=== PATIENT | female | born 1995 | race Caucasian/White ===

== ENCOUNTER 2020-07-07 11:25 | Emergency (ER) | payer BC ==
[2020-07-07 11:35] VITALS: BP 117/87; PULSE 89; RESP 18; TEMP 97.9
--- NOTE | 2020-07-07 12:06 | XR ---
EXAMINATION TYPE: XR ankle complete RT DATE OF EXAM: 07/07/2020 CLINICAL HISTORY: Fall injury with pain TECHNIQUE: Frontal, lateral and oblique images of the right ankle are obtained. COMPARISON: None. FINDINGS: There is no acute fracture/dislocation evident in the right ankle. The ankle mortise appe ars within normal limits. The overlying soft tissue appears unremarkable. IMPRESSION: There is no acute fracture or dislocation in the right ankle.
--- NOTE | 2020-07-07 12:11 | ED ---
Lower Extremity Injury HPI - General Chief Complaint: Extremity Injury, Lower Stated Complaint: Right ankle/Fall 5 steps Time Seen by Provider: 07/07/20 11:36 Source: patient Mode of arrival: ambulatory Limitations: no limitations - History of Present Illness Initial Comments: Patient is a 25-year-old female presenting to the emergency Department with c omplaints of right ankle pain after falling today. Patient states her socks slipped on her carpeted stairs and she fell down about 4-5 of them. Patient denies hitting her head, she has no other injuries from this fall other than her right ankle. Patient denies any previous injuries or surgeries of her right ankle. She states she is able to bear some weight on the ankle but is having a lot of pain. She has no further complaints at this time. - Related Data Allergies Allergy/AdvReac Type Severity Reaction Status Date / Time No Known Allergies Allergy Verified 07/07/20 11:35 Review of Systems ROS Statement: Those systems with pertinent positive or pertinent negative responses have been documented in the HPI. ROS Other: All systems not noted in ROS Statement are negative. Past Medical History Past Medical History: No Reported History History of Any Multi-Drug Resistant Organisms: None Reported Past Surgical History: No Surgical Hx Reported Additional Past Surgical History / Comment(s): reconstructive jaw at 16 due to underbite. Past Psychological History: No Psychological Hx Reported Smoking Status: Never smoker Past Alcohol Use History: Occasional Past Drug Use History: None Reported General Exam - General Exam Comments Initial Comments: GENERAL: Patient is well-developed and well-nourished. Patient is nontoxic and in no acute distress. HEAD: Atraumatic, normocephalic. EYES: Pupils equal round and reactive to light, extraocular movements intact, sclera anicteric, conjunctiva are normal. Eyelids were unremarkable. ENT: TMs normal, nares patent, oropharynx clear without exudates. Moist mucous membranes. NECK: Normal range of motion, supple without lymphadenopathy or JVD. LUNGS: Unlabored respirations. Breath sounds clear to auscultation bilaterally and equal. No wheezes rales or rhonchi. HEART: Regular rate and rhythm without murmurs, rubs or gallops. ABDOMEN: Soft, nontender, normoactive bowel sounds. No guarding, no rebound. No masses appreciated. : Deferred MUSCULOSKELETAL: Patient has some mild tenderness with palpation of the lateral and medial malleolus of the right ankle, she does have some slightly decreased range of motion in all directions, neurovascular intact. She does have some very mild swelling over the lateral malleolus. Pain of the right foot or right lower leg. No clubbing or cyanosis. NEUROLOGICAL: Patient is alert and oriented x 3. Motor and sensory are also intact. Normal speech, normal gait. PSYCH: Normal mood, normal affect. SKIN: Warm, Dry, normal turgor, no rashes or lesions noted. Limitations: no limitations Course Vital Signs 07/07/20 11:31 Temperature 97.9 F Pulse Rate 89 Respiratory 18 Rate Blood Pressure 117/87 O2 Sat by Pulse 98 Oximetry Procedures - Orthopedic Splinting/Casting Injury #1 Side: right Lower Extremity Injury Location: ankle Lower Extremity Immobilizer: [employer] Medical Decision Making - Medical Decision Making Patient is a 25-year-old female here for right ankle pain after she slipped down 4-5 steps at her house today. No other injuries from this fall other than right ankle pain. X-rays today of the right ankle show no acute fracture dislocation. I discussed these findings with the patient, this is most likely a moderate ankle sprain. I did give patient an ankle stirrup brace. She is stable for discharge. She did follow-up orthopedics if symptoms persist after 1-2 weeks. She is in agreement with this plan of care. Disposition Clinical Impression: Right ankle sprain Disposition: HOME SELF-CARE Condition: Stable Instructions (If sedation given, give patient instructions): Ankle Sprain (ED) Additional Instructions: Please return to the Emergency Department if symptoms worsen or any other concerns. Recommend ice, ibuprofen, elevation and rest. Follow-up with orthopedics if symptoms persist after 1-2 weeks. Is patient prescribed a controlled substance at d/c from ED?: No Referrals: Jacquelin Conde DO [Primary Care Provider] - 1-2 days [place] MD [STAFF PHYSICIAN] - 1-2 days
== END 2020-07-07 12:23 | disposition home or self-care (01) ==
LOC: EC 11:25
DX: S93.401A Sprain of unspecified ligament of right ankle, initial encounter (principal); W10.8XXA Fall (on) (from) other stairs and steps, initial encounter
CPT/HCPCS: 73610; 99283; 29515; L4350

== ENCOUNTER 2020-10-29 08:55 | Emergency (ER) | payer BC ==
[2020-10-29] MEDS ORDERED: SODIUM CHLORIDE 0.9% 500 ML 500 ML IV STA (09:42)
[2020-10-29] MEDS ORDERED: ACETAMINOPHEN TAB 500 MG TAB PO STA (09:53)
[2020-10-29] MEDS ORDERED: IBUPROFEN 600 MG TAB PO STA (09:53)
--- NOTE | 2020-10-29 10:03 | ED ---
General Adult HPI - General Chief complaint: Fever Stated complaint: fever/SOB Time Seen by Provider: 10/29/20 09:22 Source: patient Mode of arrival: ambulatory Limitations: no limitations - History of Present Illness Initial comments: 25-year-old female presents to the emergency room for a chief complaint of fever. Patient states 2 days ago she started to develop a fever and a headache. States the headache went away and she developed a dry cough and some slight shortness of breath. Denies chest pain Patient states the fevers have been coming and going. She has been taking Motrin and Tylenol and states they help but then the fever comes back if she doesn't take it. She states she is having diarrhea and feels dehydrated. Patient is concerned she may have covid. Patient denies any chance of . Patient has no other complaints at this time including , chest pain, abdominal pain, nausea or vomiting, headache, or visual changes - Related Data Home Medications Medication Instructions Recorded Confirmed Dextromethorphan Polistirex 30 mg PO Q12H PRN 10/29/20 10/29/20 [Delsym] Ibuprofen [Motrin Ib] 400 mg PO Q8H PRN 10/29/20 10/29/20 Allergies Allergy/AdvReac Type Severity Reaction Status Date / Time No Known Allergies Allergy Verified 10/29/20 09:45 Review of Systems ROS Statement: Those systems with pertinent positive or pertinent negative responses have been documented in the HPI. ROS Other: All systems not noted in ROS Statement are negative. Past Medical History Past Medical History: No Reported History History of Any Multi-Drug Resistant Organisms: None Reported Past Surgical History: No Surgical Hx Reported Additional Past Surgical History / Comment(s): reconstructive jaw at 16 due to underbite. Past Psychological History: No Psychological Hx Reported Smoking Status: Never smoker Past Alcohol Use History: Occasional Past Drug Use History: None Reported General Exam Limitations: no limitations General appearance: alert, in no apparent distress Head exam: Present: atraumatic, normocephalic, normal inspection Eye exam: Present: normal appearance, PERRL, EOMI. Absent: scleral icterus, conjunctival injection, periorbital swelling ENT exam: Present: normal exam, mucous membranes moist Neck exam: Present: normal inspection, full ROM. Absent: tenderness, meningismus, lymphadenopathy Respiratory exam: Present: normal lung sounds bilaterally. Absent: respiratory distress, wheezes, rales, rhonchi, stridor Cardiovascular Exam: Present: regular rate, normal rhythm, normal heart sounds. Absent: systolic murmur, diastolic murmur, rubs, gallop, clicks GI/Abdominal exam: Present: soft, normal bowel sounds. Absent: distended, tenderness, guarding, rebound, rigid Course Vital Signs 10/29/20 10/29/20 10/29/20 08:56 10:00 10:56 Temperature 100.4 F H 100.9 F H Pulse Rate 108 H 90 Respiratory 16 16 18 Rate Blood Pressure 125/77 101/73 O2 Sat by Pulse 92 L 94 L Oximetry Medical Decision Making - Medical Decision Making Vitals are stable. Patient initially 92% on room air. Patient has consistently been between 92 and 94%. Tachycardia of 108 is likely reflective of fever which did improve after Motrin and Tylenol. No respiratory distress. Patient is well appearing. Patient found to be Covid positive. CBC does show leukocytopenia likely viral. CMP unremarkable. CRP is less than 5. Chest x-ray does show a new left perihilar acute infiltrate likely viral related to Covid at this time patient is stable for discharge home. I did recommend patient have BAM as she does qualify for this. I discussed that this could help prevent her get very sick from Covid. However despite this conversation patient does not want this treatment, feels uncomfortable with an emergency use authorized medication. Therefore patient will be discharged home with Alvaro Leal. I did recommend that if she gets increasingly short of breath she needs to return to the emergency room. She is agreeable to this. - Lab Data Result diagrams: 10/29/20 09:54 10/29/20 09:54 Lab Results 10/29/20 10/29/20 10/29/20 Range/Units 09:54 09:54 09:54 WBC 3.2 L (3.8-10.6) k/uL RBC 4.93 (3.80-5.40) m/uL Hgb 14.1 (11.4-16.0) gm/dL Hct 40.6 (34.0-46.0) % MCV 82.4 (80.0-100.0) fL MCH 28.5 (25.0-35.0) pg MCHC 34.6 (31.0-37.0) g/dL RDW 13.5 (11.5-15.5) % Plt Count 226 (150-450) k/uL MPV 7.7 Neutrophils % 63 % Lymphocytes % 29 % Monocytes % 5 % Eosinophils % 1 % Basophils % 1 % Neutrophils # 2.0 (1.3-7.7) k/uL Lymphocytes # 0.9 L (1.0-4.8) k/uL Monocytes # 0.2 (0-1.0) k/uL Eosinophils # 0.0 (0-0.7) k/uL Basophils # 0.0 (0-0.2) k/uL Sodium 137 (137-145) mmol/L Potassium 4.7 (3.5-5.1) mmol/L Chloride 102 (98-107) mmol/L Carbon Dioxide 27 (22-30) mmol/L Anion Gap 8 mmol/L BUN 10 (7-17) mg/dL Creatinine 0.83 (0.52-1.04) mg/dL Est GFR (CKD-EPI)AfAm >90 (>60 ml/min/1.73 sqM) Est GFR (CKD-EPI)NonAf >90 (>60 ml/min/1.73 sqM) Glucose 93 (74-99) mg/dL Calcium 8.8 (8.4-10.2) mg/dL Total Bilirubin 0.6 (0.2-1.3) mg/dL AST 78 H (14-36) U/L ALT 26 (4-34) U/L Alkaline Phosphatase 47 (38-126) U/L C-Reactive Protein <5.0 (<10.0) mg/L Total Protein 7.3 (6.3-8.2) g/dL Albumin 4.1 (3.5-5.0) g/dL Coronavirus (PCR) Detected A (Not Detectd) Disposition Clinical Impression: COVID-19, Viral pneumonia Disposition: HOME SELF-CARE Condition: Good Instructions (If sedation given, give patient instructions): Coronavirus Disease 2019 (COVID-19), Fever in Adults (ED) Additional Instructions: Please take Motrin and Tylenol for pain or fever. Drink plenty of fluids. Take [id number] vitamins. Take Tessalon Perles as needed for cough. If you become more short of breath return to the emergency room. Otherwise follow-up with primary care in 1-2 days. Make sure you quarantine for at least 10-14 days . Is patient prescribed a controlled substance at d/c from ED?: No Referrals: Jacquelin Conde DO [Primary Care Provider] - 1-2 days Time of Disposition: 11:00
[2020-10-29 10:06] LABS: Basophils % (A) 1 %; Eosinophils % (A) 1 %; HCT 40.6 % (34.0-46.0); HGB 14.1 gm/dL (11.4-16.0); Lymphocytes # (A) 0.9 k/uL (1.0-4.8); Lymphocytes % (A) 29 %; MCH 28.5 pg (25.0-35.0); MCHC 34.6 g/dL (31.0-37.0); MCV 82.4 fL (80.0-100.0); Mean Platelet Volume 7.7; Monocytes # (A) 0.2 k/uL (0-1.0); Monocytes % (A) 5 %; Neutrophils % (A) 63 %; Platelet Count 226 k/uL (150-450); RBC 4.93 m/uL (3.80-5.40); RDW 13.5 % (11.5-15.5); WBC 3.2 k/uL (3.8-10.6)
[2020-10-29 10:19] LABS: ALT 26 U/L (4-34); AST 78 U/L (14-36); African American GFR (CKD) >90 (>60 ml/min/1.73 sqM); Albumin 4.1 g/dL (3.5-5.0); Alkaline Phosphatase 47 U/L (38-126); Anion Gap 8 mmol/L; Blood Urea Nitrogen 10 mg/dL (7-17); C Reactive Protein <5.0 mg/L (<10.0); Calcium 8.8 mg/dL (8.4-10.2); Carbon Dioxide 27 mmol/L (22-30); Chloride 102 mmol/L (98-107); Glucose 93 mg/dL (74-99); Non-African American GFR(CKD) >90 (>60 ml/min/1.73 sqM); Sodium 137 mmol/L (137-145); Total Bilirubin 0.6 mg/dL (0.2-1.3); Total Protein 7.3 g/dL (6.3-8.2)
[2020-10-29 10:32] LABS: Potassium 4.7 mmol/L (3.5-5.1)
--- NOTE | 2020-10-29 10:37 | XR ---
EXAMINATION TYPE: XR chest 1V portable DATE OF EXAM: 10/29/2020 COMPARISON: Chest x-ray 2001 HISTORY: Recent covid exposure. Shortness of breath and cough. TECHNIQUE: Single frontal view of the chest is obtained. FINDINGS: There is new left perihilar opacity. Right lung clear. No pleural effusion or pneumothora x seen. The cardiac silhouette size is within normal limits. Slight underlying scoliotic curvature. IMPRESSION: New left perihilar acute infiltrate.
[2020-10-29 10:57] VITALS: BP 101/73; PULSE 90; RESP 18; TEMP 100.9
== END 2020-10-29 11:17 | disposition home or self-care (01) ==
LOC: EC 08:55
DX: U07.1 COVID-19 (principal); J12.82 Pneumonia due to coronavirus disease 2019
CPT/HCPCS: 36415; 71045; 80053; 85025; 86140; 87635; 99285

== ENCOUNTER 2020-10-30 19:51 | Emergency (ER) | payer BC ==
[2020-10-30] MEDS ORDERED: ALBUTEROL HFA INHALER INHALATION STA (21:04)
[2020-10-30] MEDS ORDERED: predniSONE 50 MG TAB PO STA (21:04)
[2020-10-30] MEDS ORDERED: guaiFENesin-DM 600/30MG 1 EACH TAB.ER.12H PO STA (21:04)
[2020-10-30] MEDS ORDERED: ACETAMINOPHEN TAB 500 MG TAB PO STA (21:04)
--- NOTE | 2020-10-30 21:47 | ED ---
General Adult HPI - General Chief complaint: Fever Stated complaint: COVID revisit Time Seen by Provider: 10/30/20 20:51 Source: patient Mode of arrival: ambulatory Limitations: no limitations - History of Present Illness Initial comments: 25-year-old female patient presents to the emergency department today for evaluation of increased shortness of breath and cough. Patient was diagnosed with COVID-19 yesterday and told to return if she was feeling worse. Patient states she is having frequent coughing. States short of breath especially with activity. States she's had fevers. Reports nausea no vomiting. Denies diarrhea. Denies rash. Denies history of chronic lung conditions or smoking. Has been taking Tylenol and Motrin alternating. Patient denies any recent rash, chest pain, abdominal pain, back pain, numbness, tingling, dizziness, weakness, hematuria, dysuria, urinary urgency, urinary frequency, headache, visual changes, or any other complaints. - Related Data Home Medications Medication Instructions Recorded Confirmed Dextromethorphan Polistirex 30 mg PO Q12H PRN 10/29/20 10/29/20 [Delsym] Ibuprofen [Motrin Ib] 400 mg PO Q8H PRN 10/29/20 10/29/20 Previous Rx's Medication Instructions Recorded Albuterol Sulfate [Proair Hfa] 1 - 2 puff INHALATION Q6HR PRN #1 10/30/20 inhaler Benzonatate [Tessalon Perles] 100 mg PO TID PRN #15 capsule 10/30/20 guaiFENesin-DM 600/30MG [Mucinex 2 each PO Q12HR PRN #20 tab.er.12h 10/30/20 Dm] predniSONE 50 mg PO DAILY #5 tablet 10/30/20 Allergies Allergy/AdvReac Type Severity Reaction Status Date / Time No Known Allergies Allergy Verified 10/30/20 20:50 Review of Systems ROS Statement: Those systems with pertinent positive or pertinent negative responses have been documented in the HPI. ROS Other: All systems not noted in ROS Statement are negative. Past Medical History Past Medical History: Pneumonia Additional Past Medical History / Comment(s): COVID 10/27, PCOS History of Any Multi-Drug Resistant Organisms: None Reported Past Surgical History: No Surgical Hx Reported Additional Past Surgical History / Comment(s): reconstructive jaw at 16 due to underbite. Past Psychological History: No Psychological Hx Reported Smoking Status: Never smoker Past Alcohol Use History: Occasional Past Drug Use History: None Reported General Exam Limitations: no limitations General appearance: alert, in no apparent distress, other (This is a well- developed, well-nourished adult female patient in mild respiratory distress. Vital signs upon presentation are temperature 102.2F oral, pulse 111, respirations 24, blood pressure 118/67, pulse ox 93% on room air.) ENT exam: Present: normal exam, normal oropharynx, mucous membranes moist Respiratory exam: Present: normal lung sounds bilaterally, respiratory distress (mild), other (Tachypnea, frequent cough.). Absent: wheezes, rales, rhonchi, stridor Cardiovascular Exam: Present: regular rate, normal rhythm, normal heart sounds. Absent: systolic murmur, diastolic murmur, rubs, gallop, clicks GI/Abdominal exam: Present: soft, normal bowel sounds. Absent: distended, tenderness, guarding, rebound, rigid Neurological exam: Present: alert, oriented X3, CN II-XII intact Psychiatric exam: Present: normal affect, normal mood Skin exam: Present: warm, dry, intact, normal color. Absent: rash Course Vital Signs 10/30/20 10/30/20 20:46 23:27 Temperature 102.2 F H 98.9 F Pulse Rate 111 H 90 Respiratory 24 18 Rate Blood Pressure 118/67 110/73 O2 Sat by Pulse 93 L 94 L Oximetry Medical Decision Making - Medical Decision Making 25 year-old female patient presents to the emergency department today for evaluation of increased shortness of breath and cough after being diagnosed with COVID-19 yesterday. Physical examination did reveal clear equal lung sounds. Patient did seem short of breath especially with talking and movement. Oxygen saturation between 93-94% at rest. Ambulatory pulse ox was 96% on room air. She was given a Pro Air inhaler, Mucinex DM, and prednisone. Upon reevaluation she does report improvement in symptoms. I did discuss in detail treatment with bamlanivimab monoclonal antibodies. Discussed her qualifications, risks of receiving it, and not receiving it. Patient is reluctant to receive a medication that has been given emergency approval and declines the treatment. She was given the educational hand out and I explained that she must receive the dose within 10 days of symptom onset. She will be discharged with prescriptions for prednisone, Ventolin, and Mucinex DM. Return parameters were discussed in detail. She verbalizes understanding and agrees with this plan. Case discussed with my attending Dr. Anand. Disposition Clinical Impression: COVID-19 Disposition: HOME SELF-CARE Condition: Good Instructions (If sedation given, give patient instructions): Coronavirus Disease 2019 (COVID-19) Additional Instructions: Alternate Tylenol Motrin every 3 hours to control fever. Take prescribed medications as directed. Follow-up through primary care physician for recheck in 1-2 days. Return to the emergency department for any new, worsening, or concerning symptoms. Prescriptions: guaiFENesin-DM 600/30MG [Mucinex Dm] 2 each PO Q12HR PRN #20 tab.er.12h PRN Reason: Cough predniSONE 50 mg PO DAILY #5 tablet Albuterol Sulfate [Proair Hfa] 1 - 2 puff INHALATION Q6HR PRN #1 inhaler PRN Reason: Shortness Of Breath Is patient prescribed a controlled substance at d/c from ED?: No Referrals: Jacquelin Conde DO [Primary Care Provider] - 1-2 days Time of Disposition: 23:16
[2020-10-30 23:36] VITALS: BP 110/73; PULSE 90; RESP 18; TEMP 98.9
== END 2020-10-30 23:30 | disposition home or self-care (01) ==
LOC: EC 19:51
DX: U07.1 COVID-19 (principal)
CPT/HCPCS: 94640; 99284; J7512

== ENCOUNTER 2023-10-14 20:32 | Outpatient (CLI) | payer BC ==
[2023-10-14 22:00] VITALS: BP 133/65; PULSE 131; RESP 16; TEMP 98.6
--- NOTE | 2023-10-18 21:01 | P.MSEPDOC ---
Presenting Problems - Arrival Data Date of Arrival on Unit: 10/14/23 Time of Arrival on Unit: 20:32 Mode of Transport: Ambulatory - Complaint OB-Reason for Admission/Chief Complaint: Elevated Blood Pressure Medical History - Information : 1 Para: 0 Term: 0 : 0 Abortions: Spontaneous or Elective: 0 Number of Living Children: 0 - Gestational Age Gestational Age by NATALI (wks/days): 39 Weeks and 4 Days Review of Systems - Review of Systems Constitutional: No problems Breast: No problems ENT: No problems Cardiovascular: No problems Respiratory: No problems Gastrointestinal: No problems Genitourinary: No problems Musculoskeletal: No problems Neurological: No problems Skin: No problems Vital Signs - Temperature Temperature: 98.6 F Temperature Source: Oral - Pulse Right Pulse Oximetery Pulse Rate: 131 Pulse Assessment Method: Pulse Oximetry - Respirations Respiratory Rate: 16 Oxygen Delivery Method: Room Air O2 Sat by Pulse Oximetry: 98 - Blood Pressure Right Arm Blood Pressure: 133/65 Blood Pressure Mean: 87 Blood Pressure Source: Automatic Cuff Medical Screen Scoring - Cervical Exam Membranes: Intact - Uterine Contractions Intensity: Absent Resting: Soft to palpation - Assessment - Baby A Baseline FHR: 135 Heart Rate - NICHD Category: Category I (Normal) NST: Reactive Physician Notification - Physician Notified Physician Notified Date: 10/14/23 Physician Notified Time: 21:03 Physician: Opal Atkins Order Received: Yes - Notification Comment Comment: Called Dr. Atkins, notified of pt complaints, G/P, GA, Reactive NST, FHT, no contractions traced. Reviewed blood pressures since arrival, reviewed pt assessment. If pt has 1 more blood pressure within normal range, pt may be discharged home. Maternal Triage Index - Maternal Triage Index Presenting for scheduled procedure w/no complaint: No - Stat/Priority 1 Stat Priority 1: No - Urgent/Priority 2 Urgent Priority 2: No - Prompt/Priority 3 Prompt Priority 3: Yes Criteria Met for Priority 3: Called Dr. Atkins, notified of pt complaints, G/P, GA, Reactive NST, FHT, no contractions traced. Reviewed blood pressures since arrival, reviewed pt assessment. If pt has 1 more blood pressure within normal range, pt may be discharged home. Disposition - Disposition OB Disposition: Discharge to home Discharge Date: 10/14/23 Discharge Time: 21:14 I agree with the RN Medical Screening Exam: Yes Physician's MSE Comment: I have neither seen nor examined the patient Case reviewed; plan agreed upon as documented in EMR&OBIX.: Yes Diagnosis: FALSE LABOR AT OR AFTER 37 COMPLETED WEEKS OF GESTATION
== END 2023-10-14 21:14 | disposition home or self-care (01) ==
LOC: FBPOP 20:32
PROVIDERS: ATTEND Obstetrics & Gynecology
DX: O16.3 Unspecified maternal hypertension, third trimester (principal); Z3A.39 39 weeks gestation of pregnancy; Z79.899 Other long term (current) drug therapy
CPT/HCPCS: 59025; 99213

== ENCOUNTER 2023-10-19 06:00 | Inpatient (IN) | payer BC ==
[2023-10-19] MEDS ORDERED: OXYTOCIN 10 UNIT/ML 1 ML VIAL IM PRN (19:05)
[2023-10-19] MEDS ORDERED: miSOPROStoL 200 MCG TAB PO PRN (19:05)
[2023-10-19] MEDS ORDERED: TERBUTALINE 1 MG/ML VIAL SQ PRN (19:05)
[2023-10-19] MEDS ORDERED: METHYLERGONOVINE 0.2 MG/ML 1 ML AMP IM PRN (19:05)
[2023-10-19] MEDS ORDERED: CARBOPROST TROMETHAMINE 250 MCG/ML 1 ML AMP IM PRN (19:05)
[2023-10-19] MEDS ORDERED: TRANEXAMIC 1,000 MG/100ML-NACL 1,000 MG in EMPTY BAG 1 BAG IV PRN (19:05)
[2023-10-19] MEDS ORDERED: LIDOCAINE 0.5% (PF) 5 MG/ML (50 ML SDV) SQ PRN (19:05)
[2023-10-19] MEDS: DINOPROSTONE 10 MG INSERT.ER VAGINAL ONE (19:48)
[2023-10-19] MEDS ORDERED: NALBUPHINE 10 MG/ML (10 ML MDV) IV PRN (19:54)
--- NOTE | 2023-10-19 19:59 | P.HPOB ---
History of Present Illness H&P Date: 10/19/23 Chief Complaint: 40-2/7 weeks, Cervidil induction The patient is a 28-year-old 1 para 0 admitted at 40-2/7 weeks as established by 7-week ultrasound. She is admitted with an unfavorable cervix for postdates induction of labor with Cervidil cervical ripening and the intention of Pitocin augmentation if necessary in the morning. She was found at ultrasound today to have borderline oligohydramnios. Her has otherwise been uncomplicated though she was found to have group B strep bacteriuria at her new OB visit and will require antibiotic prophylaxis during labor. On labor and delivery, all signs are reassuring with category 1 heart rate tracing. Obstetrical history: 1 para 0 with current statistics listed in history of present illness. EDC of 10/17/2023 was established by 7-week ultrasound. Laboratory workup demonstrates a blood type of O+ with a negative antibody screen. Rubella status is immune. The remainder of the laboratory workup was within normal limits aside from the aforementioned group B strep bacteria that urine culture. Early Glucola was normal as was second trimester Glucola. Repeat strep status is positive as previously noted. Gynecologic history: Unremarkable with no history of any infections to include STDs. Review of Systems Review of systems is confined to history of present illness. Past Medical History Past Medical History: Pneumonia Additional Past Medical History / Comment(s): COVID 10/27, PCOS History of Any Multi-Drug Resistant Organisms: None Reported Past Surgical History: No Surgical Hx Reported Additional Past Surgical History / Comment(s): reconstructive jaw at 16 due to underbite. Past Psychological History: No Psychological Hx Reported Smoking Status: Never smoker Past Alcohol Use History: Occasional Past Drug Use History: None Reported Medications and Allergies Home Medications Medication Instructions Recorded Confirmed Type Dextromethorphan Polistirex 30 mg PO Q12H PRN 10/29/20 10/29/20 History [Delsym] Ibuprofen [Motrin Ib] 400 mg PO Q8H PRN 10/29/20 10/29/20 History Albuterol Sulfate [Proair Hfa] 1 - 2 puff INHALATION Q6HR PRN #1 10/30/20 Rx inhaler Benzonatate [Tessalon Perles] 100 mg PO TID PRN #15 capsule 10/30/20 Rx guaiFENesin-DM 600/30MG [Mucinex 2 each PO Q12HR PRN #20 tab.er.12h 10/30/20 Rx Dm] Vit No.179/Iron/Folic 1 tab PO DAILY 10/19/23 10/19/23 History [ Tablet] Allergies Allergy/AdvReac Type Severity Reaction Status Date / Time No Known Allergies Allergy Verified 10/14/23 20:46 Exam Vital Signs Temp Pulse Resp BP Pulse Ox 10/19/23 19:01 98.0 F 120 H 16 122/77 97 Intake and Output 10/19/23 10/19/23 10/19/23 06:59 14:59 22:59 Other: Weight 136.985 kg In general, this is a well-developed, morbidly obese white female in no acute distress. Her heart has a regular rhythm and rate without murmur. Her lungs are clear to auscultation bilaterally in all phelps. Her abdomen is gravid, nondistended, has normal active bowel sounds, soft, nontender, and without any palpable masses aside from uterine fundus. Her extremities are without any cyanosis, clubbing, or significant edema and are nontender to palpation bilaterally. Digital cervical examination confirms her cervix to remain fingertip, 60 to 70% effaced, with a vertex and presentation at -2 station. Cervidil was placed in the posterior fornix per protocol. Assessment and Plan (1) Post-dates Current Visit: Yes Status: Acute Code(s): O48.0 - POST-TERM SNOMED Code(s): 29480489 Plan: The patient has been admitted for Cervidil cervical ripening which has been placed. The plan will be to start Pitocin augmentation at 6:00 tomorrow morning if the patient is not already in active labor. She will have close maternal and surveillance and expectant management will be practiced. She is a good candidate for either IV, epidural, or nitrous analgesia, whichever she may choose. Antibiotic prophylaxis with penicillin for group B strep will be started when the patient starts Pitocin or at the onset of active labor. Intermittent monitoring overnight will be adequate assuming labor does not begin.
[2023-10-20] MEDS: LACTATED RINGERS 1,000 ML IV SCH ×2 (03:54→21:14)
[2023-10-20] MEDS: OXYTOCIN 30 UNITS/500 ML NS 30 UNIT in SALINE 1 500ML.BAG IV SCH ×2 (06:15→16:15)
[2023-10-20] MEDS: PENICILLIN G POTASSIUM 5,000,000 UNIT in DEXTROSE 5% IN WATER 100 ML IVPB ONE (06:35)
[2023-10-20 07:19] LABS: Basophils # (A) 0.1 k/uL (0-0.2); Basophils % (A) 0 %; Eosinophils # (A) 0.2 k/uL (0-0.7); Eosinophils % (A) 1 %; HCT 38.2 % (34.0-46.0); HGB 12.8 gm/dL (11.4-16.0); Lymphocytes # (A) 2.3 k/uL (1.0-4.8); Lymphocytes % (A) 19 %; MCH 27.8 pg (25.0-35.0); MCHC 33.5 g/dL (31.0-37.0); MCV 83.1 fL (80.0-100.0); Mean Platelet Volume 9.6; Monocytes # (A) 0.6 k/uL (0-1.0); Monocytes % (A) 5 %; Neutrophils # (A) 8.4 k/uL (1.3-7.7); Neutrophils % (A) 72 %; Platelet Count 292 k/uL (150-450); RDW 14.8 % (11.5-15.5); WBC 11.6 k/uL (3.8-10.6)
[2023-10-20] MEDS: PENICILLIN G POTASSIUM 2,500,000 UNIT in DEXTROSE 5% IN WATER 100 ML IVPB SCH (11:13)
[2023-10-20] MEDS: CITRIC ACID-SODIUM CITRATE 15 ML CUP PO ONE (16:38)
[2023-10-20] MEDS ORDERED: KETOROLAC 15 MG/ML 1 ML VIAL ONE (16:41)
[2023-10-20] MEDS ORDERED: ONDANSETRON 4 MG/2 ML VIAL ONE (16:41)
[2023-10-20] MEDS ORDERED: MORPHINE SULFATE (PF) 0.3 MG/0.3 ML SYR ONE (16:41)
[2023-10-20] MEDS ORDERED: OXYTOCIN 30 UNITS/500 ML NS BAG IV ONE (16:41)
[2023-10-20] MEDS ORDERED: ONDANSETRON 4 MG/2 ML VIAL IVP PRN (17:47)
[2023-10-20] MEDS ORDERED: SIMETHICONE 80 MG CHEWABLE PO PRN (17:47)
[2023-10-20] MEDS ORDERED: diphenhydrAMINE 50 MG/ML 1 ML VIAL IVP PRN ×2 (17:47)
[2023-10-20] MEDS ORDERED: diphenhydrAMINE 25 MG CAP PO PRN (17:47)
[2023-10-20] MEDS ORDERED: ZOLPIDEM 5 MG TAB PO PRN (17:47)
[2023-10-20] MEDS ORDERED: NALOXONE 0.4 MG/ML 1 ML VIAL IV PRN (17:47)
[2023-10-20] MEDS ORDERED: diphenhydrAMINE 50 MG CAP PO PRN (17:47)
[2023-10-20] MEDS ORDERED: METOCLOPRAMIDE 5 MG/ML 2 ML VIAL IVP PRN (17:47)
--- NOTE | 2023-10-20 17:55 | P.OP ---
Date of Procedure: 10/20/23 Preoperative Diagnosis: #1. 40-3/7 weeks, induction #2. Maternal request for primary low-transverse section Postoperative Diagnosis: Same Procedure(s) Performed: #1. Primary low-transverse section Anesthesia: spinal Surgeon: James Boss [employer] Manager #1: Opal Atkins Estimated Blood Loss (ml): 489 IV fluids (ml): 1,400 Urine output (ml): 300 Pathology: none sent Condition: stable Disposition: floor Operative Findings: Preoperatively, the patient had been admitted last evening for Cervidil cervical ripening with a significantly unfavorable cervix. She did begin to contract in the night and failed to make any appreciable cervical change or any descent of the head. Pitocin augmentation was started this morning she went for approximately 6 to 8 hours with no further appreciable change at which time she was counseled that she could continue with labor as she had not yet met the criteria for arrest of dilation and descent. She declined to continue with induction instead requesting primary low-transverse section. She was taken to the operating room where she was delivered of a viable 7 pound 8 ounce baby boy with Apgars of 9 at 1 minute and 9 at 5 minutes delivered in the left occiput transverse position. The placenta was delivered manually, intact, and grossly normal with a grossly normal three-vessel cord. The uterus, tubes, and ovaries were entirely normal to inspection. Description of Procedure: The patient was prepped and draped in usual fashion after spinal anesthesia was administered by the anesthesiologist. A Pfannenstiel incision was made and extended into the abdominal cavity with no significant difficulty. The bladder peritoneum was significantly distal to the intended site of incision and was left intact. A 2 cm incision was made in the transverse plane of the lower uterine segment after the uterus at which time clear fluid was noted. The incision was extended both directions using the bandage scissors. The head was delivered up and through the incision where the nose and mouth were thoroughly suctioned. The remainder of the infant was delivered onto the field where the cord was doubly clamped, cut, and the passed for resuscitative measures with weight and Apgars as noted above. cord blood was collected per protocol. The placenta was delivered manually and intact as noted above. The uterus was exteriorized and the anterior cavity of the uterus swept of any remaining placental or membranous fragments. The margins of the uterine incision were grasped with Dickey clamps and the incision closed in 2 layers. The first layer was a running locking stitch of 0 chromic catgut from margin to margin followed by a running imbricating layer of 0 chromic catgut from margin to margin. Hemostasis appeared to be excellent. The posterior cul-de-sac was suctioned with regard followed by laparotomy sponge for any remaining fluid. The uterus, tubes, and ovaries were normal to inspection as noted above. The uterus was replaced within the abdominal cavity and the gutters swept of any remaining blood, fluid, or clot. Reexamination of the uterine incision demonstrated excellent hemostasis. The parietal peritoneum was loosely reapproximated and the layer of muscles examined and found to be hemostatic. The fascia was closed with 2 running stitches of 0 Vicryl proceeding from the lateral margins to the midpoint. The subcutaneous tissues were irrigated, made hemostatic with the Bovie, and reapproximated with a running stitch of 3-0 plain catgut. The skin was reapproximated with a running subcuticular stitch of 4-0 Vicryl followed by half-inch Steri-Strips placed with Mastisol. Quantitative blood loss for the case was 489 mL. There were no compl ications. All sponge, instrument, and needle counts were correct. The patient tolerated the procedure well and proceeded to the recovery room in stable condition. Both mother and are resting comfortably in recovery.
[2023-10-20] MEDS: SENNOSIDES-DOCUSATE SODIUM 1 EACH TAB PO SCH (20:28)
[2023-10-20] MEDS: ACETAMINOPHEN TAB 500 MG TAB PO SCH (20:28)
[2023-10-21] MEDS: KETOROLAC 15 MG/ML 1 ML VIAL IVP PRN (00:13)
[2023-10-21 00:57] VITALS: RESP 16
[2023-10-21] MEDS: IBUPROFEN 600 MG TAB PO SCH (01:22)
[2023-10-21 06:08] LABS: Basophils % (A) 0 %; Eosinophils # (A) 0.1 k/uL (0-0.7); Eosinophils % (A) 1 %; HCT 31.1 % (34.0-46.0); HGB 10.5 gm/dL (11.4-16.0); Lymphocytes # (A) 2.3 k/uL (1.0-4.8); Lymphocytes % (A) 21 %; MCH 28.5 pg (25.0-35.0); MCHC 33.7 g/dL (31.0-37.0); MCV 84.5 fL (80.0-100.0); Mean Platelet Volume 9.5; Monocytes # (A) 0.7 k/uL (0-1.0); Monocytes % (A) 7 %; Neutrophils # (A) 7.6 k/uL (1.3-7.7); Neutrophils % (A) 70 %; Platelet Count 256 k/uL (150-450); RBC 3.68 m/uL (3.80-5.40); RDW 14.7 % (11.5-15.5); WBC 10.9 k/uL (3.8-10.6)
--- NOTE | 2023-10-21 08:25 | P.PNOBGPC ---
Subjective - Subjective Patient reports: Reports appetite normal, Reports voiding normally, Reports pain well controlled, Reports ambulating normally : doing well Objective - Vital Signs Latest vital signs: Vital Signs Temp Pulse Resp BP Pulse Ox 10/21/23 04:50 97.8 F 75 16 114/66 97 10/21/23 00:32 98.4 F 79 16 133/73 96 10/20/23 19:47 91 15 113/58 98 10/20/23 19:32 74 15 118/67 98 10/20/23 19:17 84 16 117/59 99 10/20/23 19:02 73 16 125/63 96 10/20/23 18:47 96.4 F L 73 17 125/64 96 10/20/23 18:17 83 17 125/64 97 10/20/23 18:02 96 17 97 10/20/23 17:47 96.5 F L 101 H 17 129/79 Intake and Output 10/20/23 10/21/23 10/21/23 22:59 06:59 14:59 Intake Total 350 600 Output Total 614 350 Balance -264 250 Intake: Oral 350 600 Output: Urine 350 Uretheral (Ng) 350 Estimated Blood Loss 489 Output, Quantitative 125 Blood Loss Other: Voiding Method Indwelling Catheter Indwelling Catheter - Exam Extremities: Present: normal Abdomen: Present: normal appearance, soft. Absent: distention, tenderness Incision: Present: normal, dry, intact Uterus: Present: normal, firm (The uterine fundus is tonic and minimally tender just below the umbilicus.) - Labs Labs: Abnormal Lab Results - Last 24 Hours (Table) 10/21/23 Range/Units 05:47 WBC 10.9 H (3.8-10.6) k/uL RBC 3.68 L (3.80-5.40) m/uL Hgb 10.5 L (11.4-16.0) gm/dL Hct 31.1 L (34.0-46.0) % Assessment and Plan (1) Post-dates Current Visit: Yes Status: Acute Code(s): O48.0 - POST-TERM SNOMED Code(s): 93825109 (2) Status post section Current Visit: Yes Status: Acute Code(s): Z98.891 - HISTORY OF UTERINE SCAR FROM PREVIOUS SURGERY SNOMED Code(s): 074109657 Plan: Continue routine and postoperative care. I have encouraged the patient to ambulate in the hallways routinely today. She is already tolerating a regular diet. I would anticipate discharge home tomorrow pending no complications.
--- NOTE | 2023-10-21 08:50 | P.PN ---
Progress Note - Text Progress Note Date: 10/21/23 (934) Anesthesia Postop day 1 Subjective: Status Post section with Duramorph. Patient seen and examined. Doing well without complaint. VAS 1 out of 10. Denies nausea vomiting or pruritus. Denies fever. Gross lower extremity strength intact. Without apparent anesthetic complications. Objective: Vital signs reviewed Heart: Regular Rate Lungs: Good chest excursion Abdomen: Appears nondistended Assessment: Status post section with Duramorph postop day 1 Plan: 1. Continue current care with your medical management. Anticipated end to the duration of the Duramorph around surgery time today. You may see increased pain needs around this time. 2. This note was dictated using [employer] software. Please be advised there is a potential for misspellings or errors in real estate loan processor.
[2023-10-22 08:34] VITALS: BP 140/86; PULSE 78; TEMP 98.1
--- NOTE | 2023-10-22 10:55 | P.DS ---
Providers Date of admission: 10/19/23 18:57 Expected date of discharge: 10/22/23 Attending physician: James Boss Primary care physician: Stated None - Discharge Diagnosis(es) (1) Post-dates Current Visit: Yes Status: Acute (2) Status post section Current Visit: Yes Status: Acute Hospital Course: Patient is a 28-year-old 1 para 0 admitted at 40-2/7 weeks by good dating parameters. She is admitted with an unfavorable cervix for induction of labor which started with Cervidil cervical ripening. She made little change overnight with the Cervidil and had Pitocin augmentation started. After approximately 6 to 8 hours of augmentation with Pitocin, her cervix still had not made any appreciable change. She was counseled regarding the [place] guidelines for continuing for some time still but declined to further augment and requested primary low-transverse section. She was taken to the operating room where she was delivered of a viable 7 pound 8 ounce baby boy with Apgars of 9 at 1 minute and 9 at 5 minutes. Her and postoperative course was unremarkable with vital signs remaining stable and her temperature was afebrile throughout. She was deemed stable for discharge on and postoperative day #2 and was discharged home to follow-up in the office in 2 weeks for an incision check in 6 weeks routinely. Discharge instructions included calling for any significantly increased bleeding or foul-smelling lochia, significantly increased fever or abdominal pain, perineal complaints, breast complaints, incisional complaints, or anything else that concerned her. She was additionally instructed to do no heavy lifting over the same 6 weeks time and to abstain from anything in the vagina for at least 6 weeks to include intercourse. She was lastly instructed to do no driving until off of all pain medications or 2 weeks time, whichever came first. She understood her instructions and agrees to follow-up as noted above. Discharge medications included only [id number] analgesic pain medications. She has opted to not breast-feed. She was provided a prescription for Tylenol 3, 1-2 p.o. every 6 hours as needed pain, #12 dispensed with no refills. Maternal blood type is O+ and rubella status is immune. Discharge hemoglobin and hematocrit were 10.5 and 31.1 respectively. Procedures: #1. Cervidil cervical ripening #2. Pitocin augmentation #3. Primary low- transverse section Patient Condition at Discharge: Stable Plan - Discharge Summary New Discharge Prescriptions: No Action Vit No.179/Iron/Folic [ Tablet] 1 tab PO DAILY Discharge Medication List Vit No.179/Iron/Folic [ Tablet] 1 tab PO DAILY 10/19/23 [History] Follow up Appointment(s)/Referral(s): James Boss MD [STAFF PHYSICIAN] - 2 Weeks Discharge Disposition: HOME SELF-CARE
--- NOTE | 2023-10-26 08:49 | P.ANPRN ---
Procedure Note - Anesthesia - Epidural/Spinal Spinal Time Out Performed: Yes Date of Procedure: 10/26/23 Procedure Start Time: 16:45 Procedure Stop Time: 16:52 Location of Patient: OR Indication: Acute Post-Operative Pain, Requested by Surgeon (jeff) Sedation Type: Awake Preparation: Sterile Prep Number of Attempts: 1 Position: Sitting Catheter: None Needle Guage: 25 (x5in) Injectate: Bupi 0.75% 1.5cc DM 300mcg Blood Aspirated: No Pain Paresthesia on Injection Noted: No Events: Uneventful and Well Tolerated
== END 2023-10-22 13:50 | disposition home or self-care (01) | DRG 787 ==
LOC: 4FBP 18:57
PROVIDERS: ADMIT Obstetrics & Gynecology; ATTEND Obstetrics & Gynecology
PROC: 3E0P7VZ Introduction of Hormone into Female Reproductive, Via Natural or Artificial Opening (ICD-10-PCS; 2023-10-19)
PROC: 10D00Z1 Extraction of Products of Conception, Low, Open Approach (ICD-10-PCS; principal; 2023-10-20 17:04)
DX: O48.0 Post-term pregnancy (principal); O41.03X0 Oligohydramnios, third trimester, not applicable or unspecified; O32.2XX0 Maternal care for transverse and oblique lie, not applicable or unspecified; Z3A.40 40 weeks gestation of pregnancy; Z37.0 Single live birth
CPT/HCPCS: 85025; 86850; 86900; 86901